=== PATIENT | female | born 1975 | race Two or more races ===

== ENCOUNTER 2024-07-18 09:04 | Outpatient (CLI) | payer MEDICAID | END 2024-07-18 17:00 | disposition home or self-care (01) | LOC: RT 09:04 | PROVIDERS: ATTEND Internal Medicine Pulmonary Disease | DX: J45.50 Severe persistent asthma, uncomplicated (principal); R05.9 Cough, unspecified; R06.00 Dyspnea, unspecified; Z79.51 Long term (current) use of inhaled steroids | CPT/HCPCS: 94060; 94727; 94729 ==